=== PATIENT | female | born 1985 | race Caucasian/White ===

== ENCOUNTER → 2017-07-04 | Outpatient (CLI) | payer OTHER | LOC: M RAD 14:23 | DX: O03.9 Complete or unspecified spontaneous abortion without complication (principal); Z3A.17 17 weeks gestation of pregnancy | CPT/HCPCS: 76811 ==

== ENCOUNTER 2017-07-07 10:59 | Inpatient (IN) | payer OTHER ==
[2017-07-07] MEDS ORDERED: miSOPROStol 200 MCG TAB (S0191) PV (12:15)
[2017-07-07] MEDS: miSOPROStol 200 MCG TAB (S0191) PV ×3 (13:37→23:24)
[2017-07-07 13:55] LABS: BASO % 0.3 % (0.0-1.0); EOS # 0.1 10^3/uL (0.0-0.50); EOS % 0.9 % (0.0-3.0); HEMATOCRIT 40.4 % (36.0-47.0); HEMOGLOBIN 13.8 g/dl (12.0-16.0); IMMATURE GRANULOCYTE % 0.8 % (0-3.0); LYMPH # 1.9 10^3/uL (1.5-6.5); LYMPH % 12.6 % (24.0-44.0); MEAN CORPUSCULAR HEMOGLOBIN 31.6 pg (27.0-33.0); MEAN CORPUSCULAR HGB CONC 34.2 g/dl (32.0-36.5); MEAN CORPUSCULAR VOLUME 92.4 fl (80.0-96.0); MONO # 0.7 10^3/uL (0.0-0.8); MONO % 4.4 % (0.0-5.0); PLATELET COUNT, AUTOMATED 270 10^3/uL (150-450); RED BLOOD COUNT 4.37 10^6/uL (4.00-5.40); RED CELL DISTRIBUTION WIDTH 12.9 % (11.5-14.5); WHITE BLOOD COUNT 14.8 10^3/uL (4.0-10.0)
[2017-07-07] MEDS: LR 1,000 ML IV (13:56)
[2017-07-07 14:16] LABS: AMPHETAMINES LEVEL URINE NEGATIVE (NEGATIVE); BARBITURATES URINE NEGATIVE (NEGATIVE); BENZODIAZEPINES URINE NEGATIVE (NEGATIVE); CANNABINOIDS URINE NEGATIVE (NEGATIVE); COCAINE METABOLITE URINE NEGATIVE (NEGATIVE); METHADONE URINE NEGATIVE (NEGATIVE); OPIATES URINE NEGATIVE (NEGATIVE); PHENCYCLIDINE URINE NEGATIVE (NEGATIVE)
[2017-07-07 14:26] LABS: THYROID STIMULATING HORMONE 0.157 uIU/ML (0.358-3.740)
[2017-07-07 14:26] LABS: THYROXINE (T4) 13.3 UG/DL (4.5-12.0)
[2017-07-07] MEDS: BENZONATATE 100 MG CAP PO (19:50)
[2017-07-08] MEDS ORDERED: OXYTOCIN 30 UNITS IN 0.9% NaCl 500ML IV BAG (J2590) As Ordered (01:19)
[2017-07-08] MEDS ORDERED: miSOPROStol 100 MCG TAB (S0191) As Ordered (01:28)
[2017-07-08] MEDS: miSOPROStol 200 MCG TAB (S0191) PV (01:37)
[2017-07-08] MEDS: IBUPROFEN 800 MG TAB PO (02:46)
[2017-07-08] MEDS: BUTORPHANOL 2 MG/ML INJ (J0595) IV (03:26)
[2017-07-08] MEDS: PROMETHAZINE INJ 25 MG/ML VIAL (J2550) IV (03:27)
[2017-07-08] MEDS: miSOPROStol 200 MCG TAB (S0191) PR (03:35)
[2017-07-08] MEDS: LR 1,000 ML IV ×4 (06:15→15:07)
[2017-07-08] MEDS ORDERED: ACETAMINOPHEN 500 MG TAB PO (06:30)
[2017-07-08] MEDS ORDERED: DOCUSATE SODIUM 100 MG CAP PO (06:30)
[2017-07-08] MEDS: AMPICILLIN SOD/SULBACTAM SOD 3 GM in D5W MINI-BAG PLUS 100 ML IV (06:31)
[2017-07-08 07:23] LABS: HEMATOCRIT 27.6 % (36.0-47.0); HEMOGLOBIN 9.6 g/dl (12.0-16.0); MEAN CORPUSCULAR HEMOGLOBIN 32.2 pg (27.0-33.0); MEAN CORPUSCULAR HGB CONC 34.8 g/dl (32.0-36.5); MEAN CORPUSCULAR VOLUME 92.6 fl (80.0-96.0); PLATELET COUNT, AUTOMATED 229 10^3/uL (150-450); RED BLOOD COUNT 2.98 10^6/uL (4.00-5.40); RED CELL DISTRIBUTION WIDTH 12.7 % (11.5-14.5); WHITE BLOOD COUNT 15.8 10^3/uL (4.0-10.0)
[2017-07-08] MEDS: RHOGAM 300 MCG (1500 IU) INJ (J2790) IM (08:57)
[2017-07-08] MEDS: MEASLES,MUMPS,RUBELLA VACCINE INJ (MMR-II) (90707) SC (08:58)
[2017-07-08] MEDS: BENZONATATE 100 MG CAP PO (12:48)
[2017-07-08 13:33] LABS: HEMATOCRIT 28.3 % (36.0-47.0); HEMOGLOBIN 9.7 g/dl (12.0-16.0); MEAN CORPUSCULAR HGB CONC 34.3 g/dl (32.0-36.5); MEAN CORPUSCULAR VOLUME 93.4 fl (80.0-96.0); PLATELET COUNT, AUTOMATED 261 10^3/uL (150-450); RED BLOOD COUNT 3.03 10^6/uL (4.00-5.40); WHITE BLOOD COUNT 13.8 10^3/uL (4.0-10.0)
[2017-07-09 10:14] LABS: ANTI PARVO VIRUS LEVEL IGG 6.3 index (0.0-0.8); ANTI PARVO VIRUS LEVEL IgM 0.2 index (0.0-0.8); BETA-2 GLYCOPROTEIN I ABY IGA <9 (0-25); BETA-2 GLYCOPROTEIN I ABY IGG <9 (0-20); BETA-2 GLYCOPROTEIN I ABY IGM <9 (0-32); CARDIOLIPIN IGA ANTIBODY <9 APL U/mL (0-11); CARDIOLIPIN IGG ANTIBODY <9 GPL U/mL (0-14); CARDIOLIPIN IGM ANTIBODY <9 MPL U/mL (0-12)
== END 2017-07-08 20:10 | disposition home or self-care (01) | DRG 779 ==
LOC: M LDI 10:59
PROVIDERS: Obstetrics & Gynecology
PROC: 3E0P7VZ Introduction of Hormone into Female Reproductive, Via Natural or Artificial Opening (ICD-10-PCS; 2017-07-07)
PROC: 10E0XZZ Delivery of Products of Conception, External Approach (ICD-10-PCS; principal; 2017-07-08)
DX: O02.1 Missed abortion (principal); Z3A.17 17 weeks gestation of pregnancy; Z37.1 Single stillbirth